=== PATIENT | female | born 1985 ===

== ENCOUNTER 2024-03-30 21:30 | Outpatient (REF) | payer BC, SELFPAY | END 2024-03-30 21:31 | disposition home or self-care (01) | LOC: NCHCN 21:30 | PROVIDERS: Visit Provider Family Medicine | DX: R30.0 Dysuria (principal); R82.89 Other abnormal findings on cytological and histological examination of urine | CPT/HCPCS: 87086 ==

== ENCOUNTER 2024-08-29 17:15 | Outpatient (REF) | payer BC, SELFPAY ==
--- NOTE | 2024-08-29 09:00 | PAPFT_PTH ---
PATIENT: Debbie Fulton LOC: [facility] U#:[id number] AGE/SX: 39/F ROOM: RE08/29/[address]: Barbara Coats : 1985 BED: DIS: 08/29/2024 SPEC #: [id number] RECD: 08/29/24 18:11 STATUS: RORY REQ #: [id number] SALO: 08/29/24 09:[address]: Barbara Coats DEPT: [facility] Cytology RECD BY: Cinda Iraheta ENTERED: 08/29/24 18:11 SP TYPE: PAPFT OTHR DR: Unknown,Unknown Tissues: 1 - CX/ENDOCX FOR PAP SMEARS Procedures: PAP THIN PREP/[facility] Screening HPV DNA PROBE Comments: [id number] (HPV 16 & 18/45)
[2024-08-29 18:49] LABS: ALT 25 U/L (14-59); AST 18 U/L (15-37); Albumin 4.3 g/dL (3.4-5.0); Alkaline Phosphatase 73 U/L (46-116); Anion Gap 6.1 mmol/L (3-11); BUN 14 mg/dL (7-18); Bilirubin, Total 0.6 mg/dL (0.2-1.0); CO2 29.9 mmol/L (21.0-32.0); CREATININE 0.8 mg/dL (0.55-1.02); Calcium 9.5 mg/dL (8.5-10.1); Calculated LDL 78 mg/dL (<100); Chloride 103 mmol/L (98-107); Cholesterol 170 mg/dL (<200); Estimated GFR 95.46 (mL/min/1.73m2); Glucose 112 mg/dL (74-106); HDL Cholesterol 76 mg/dL (>or=50); Potassium 4.2 mmol/L (3.5-5.1); Sodium 139 mmol/L (136-145); Total Protein 7.9 g/dL (6.4-8.2); Triglyceride 80 mg/dL (<150)
[2024-08-30 19:51] LABS: Hepatitis C Ab w Rflx HCV PCR Negative (Negative)
[2024-08-30 19:54] LABS: HIV-1/2 Ag & Ab Screen Negative (Negative)
== END 2024-08-29 17:16 | disposition home or self-care (01) ==
LOC: NCHCN 17:15
PROVIDERS: Visit Provider Family Medicine
DX: Z12.4 Encounter for screening for malignant neoplasm of cervix (principal); Z00.00 Encounter for general adult medical examination without abnormal findings; Z01.419 Encounter for gynecological examination (general) (routine) without abnormal findings; Z11.59 Encounter for screening for other viral diseases; Z13.220 Encounter for screening for lipoid disorders
CPT/HCPCS: 80053; 80061; 86803; 87389; 88142; 87624

== ENCOUNTER 2024-09-07 00:30 | Outpatient (CLI) | payer BC, SELFPAY ==
--- NOTE | 2024-09-07 | DI.MAMMO_ITS ---
Exam(s) MAMMO SCREENING EXAM: MAMMO SCREENING CLINICAL HISTORY: SCREENING,Z12.31,BASELINE TECHNIQUE: Mammograms were interpreted according to the usual protocol including computer analysis with CAD system, tomosynthesis and C-view imaging. COMPARISON: None. Baseline examination. FINDINGS: The breasts are composed of heterogeneously dense fibroglandular densities, Breast Density category C. No suspicious masses or suspicious microcalcifications are seen. No skin thickening or abnormal axillary lymph nodes are seen. IMPRESSION: BI-RADS Category 1, Negative mammogram. Yearly screening mammography is recommended. Breast Density: Category C - The breasts are heterogeneously dense, which may obscure small masses. Breast density Category C or D implies that the patient has dense breast tissue. Dense breast tissue can make it harder to find cancer on a mammogram. Dense breast tissue is also associated with an increased risk of breast cancer. This information about the result of the mammogram report was provided to the patient to raise their awareness. Use this report when you speak with the patient about their risks for breast cancer, which includes their family history. At that time, you may recommend additional screening tests (Ultrasound or MRI) as these tests may add significant information. A negative radiographic report should not delay biopsy if a dominant or clinically suspicious mass is present. Up to ten percent of cancers are not identified on mammography. A negative report may reinforce clinical impression. Adenosis and dense breasts may obscure an underlying neoplasm. False positive reports average 6 to 10%.
== END 2024-09-07 00:50 ==
PROVIDERS: Visit Provider Family Medicine
DX: Z12.31 Encounter for screening mammogram for malignant neoplasm of breast (principal); R92.333 Mammographic heterogeneous density, bilateral breasts
CPT/HCPCS: 77063; 77067

== ENCOUNTER 2024-12-05 21:06 | Outpatient (REF) | payer OTHER, SELFPAY ==
[2024-12-05 21:56] LABS: Abs Immature Grans 0.02 10^3/uL (0.0-0.06); HCT 39.1 % (36.0-46.0); HGB 12.9 g/dL (11.2-15.7); Immature Grans % 0.3 %; MCH 28.2 pg (27.0-33.0); MCHC 33.0 % (32.0-36.0); MCV 86 fL (80-95); MPV 10.0 fL (8.0-11.0); Platelet Count 293 10^3/uL (130-400); RBC 4.57 10^6/uL (3.93-5.22); RDW 11.9 % (11.7-14.6); RDW-SD 36.9 fL; WBC 7.87 10^3/uL (4.4-10.8)
[2024-12-05 22:15] LABS: ALT 19 U/L (14-59); AST 12 U/L (15-37); Albumin 4.5 g/dL (3.4-5.0); Alkaline Phosphatase 67 U/L (46-116); Anion Gap 8.9 mmol/L (3-11); BUN 10 mg/dL (7-18); Bilirubin, Total 0.4 mg/dL (0.2-1.0); C-Reactive Protein < 0.50 mg/dL (<or=0.5); CO2 27.1 mmol/L (21.0-32.0); Calcium 9.8 mg/dL (8.5-10.1); Chloride 105 mmol/L (98-107); Estimated GFR 95.46 (mL/min/1.73m2); Glucose 115 mg/dL (74-106); Potassium 3.8 mmol/L (3.5-5.1); Sodium 141 mmol/L (136-145); TSH (W/Ref FT4) 1.87 uIU/mL (0.36-3.74); Total Protein 8.2 g/dL (6.4-8.2)
[2024-12-07 09:23] LABS: Lyme Ab w Rflx to Lyme Confirm Negative (Negative)
[2024-12-08 13:45] LABS: B. miyamotoi PCR Negative (Negative); Babesia divergens/MO-1 Negative (Negative); Ehrlichia muris eauclairensis Negative (Negative)
== END 2024-12-05 21:07 | disposition home or self-care (01) ==
LOC: NCHCN 21:06
PROVIDERS: Visit Provider Family Medicine
DX: R53.83 Other fatigue (principal); M25.59 Pain in other specified joint; W57.XXXA Bitten or stung by nonvenomous insect and other nonvenomous arthropods, initial encounter
CPT/HCPCS: 80053; 87798; 84443; 85025; 86038; 86140; 86225; 86431; 86618

== ENCOUNTER 2024-12-11 21:12 | Outpatient (REF) | payer OTHER, SELFPAY ==
[2024-12-13 15:17] LABS: RNP Ab, IgG <6.0 CU (<20.0); Ro60 Ab, IgG 715.5 CU (<20.0); SS-A/Ro, IgG 4.7 CU (<20.0); SS-B (La) Ab, IgG 23.3 CU (<20.0)
[2024-12-14 14:41] LABS: Sm (Smith) Ab, IgG <0.2 U
== END 2024-12-11 21:13 | disposition home or self-care (01) ==
LOC: NCHCN 21:12
PROVIDERS: Visit Provider Family Medicine
DX: R76.8 Other specified abnormal immunological findings in serum (principal)
CPT/HCPCS: 86235

== ENCOUNTER 2025-03-13 09:43 | Outpatient (CLI) | payer OTHER, SELFPAY ==
[2025-03-15 12:43] LABS: TB Interpretation Negative (Negative); TB1 Ag minus Nil 0.00 IU/mL; TB2 Ag minus Nil 0.00 IU/mL
== END 2025-03-13 09:44 | disposition home or self-care (01) ==
LOC: LBO 09:52
PROVIDERS: Visit Provider Family Medicine
DX: Z11.1 Encounter for screening for respiratory tuberculosis (principal); Z78.9 Other specified health status
CPT/HCPCS: 36415; 86787; 86480